=== PATIENT | male | born 1990 | race Two or more races ===

== ENCOUNTER 2021-10-29 08:54 | Outpatient (CLI) | payer OTHER ==
--- NOTE | 2021-10-30 11:17 | Nuclear Medicine Report ---
PROCEDURE: Thyroid Imaging and Uptake INDICATIONS: THYROTOXICOSIS RADIOPHARMACEUTICAL: 0.37 Ci I-123 sodium iodide by mouth. TECHNIQUE: I-123 sodium iodide was administered orally. Anterior neck images were obtained, and iodine uptake b y the thyroid gland calculated using jewel sawyer's software. COMPARISON: None available. FINDINGS: Morphology: The thyroid gland has normal morphology and uniform activity. No cold' or hot' thyroi d nodules are identified. Uptake: 6 hour thyroid uptake is 75%; normal ranges are from 6-18%. 24 hour thyroid uptake is 76%; normal ranges are from 10-30%. IMPRESSION: Increased thyroid uptake at 6 hours and 12 hours consistent with history of thyrotoxicos is. Reviewed by: Campbell Bob on 10/30/2021 11:15 AM [facility] Approved by: Campbell Bob on 10/30/2021 11:15 AM [facility] Station ID: [id number]
== END 2021-10-29 08:55 | disposition home or self-care (01) ==
LOC: DI 08:54
DX: E05.90 Thyrotoxicosis, unspecified without thyrotoxic crisis or storm (principal)
CPT/HCPCS: 78014; A9509

== ENCOUNTER 2022-10-14 13:40 | Outpatient (CLI) | payer OTHER ==
--- NOTE | 2022-10-14 14:33 | SLEEP CARE CONSULTATION ---
Information from patient questionnaire entered by Celi Arriaza. I have reviewed and concur with the information entered by Celi Arriaza. This document represents the service I personally performed and the decisions made by me, Jayla Jordan ARNP. History of Present Illness Service Date and Time: 10/14/2022 1340 Reason for Visit: New patient Chief Complaint: reports: Insomnia, Unrefreshed sleep, Excessive daytime sleepiness, Observed pauses in breathing, Fatigue, Frequent awakenings at night Date of Onset: 1.5YRS Usual bedtime: 10PM Time it takes to fall asleep: 30-60MIN Snores at night: No Observed to quit breathing while asleep: Yes Sleeps alone due to snoring: No Number of times waking at night: 3 Reasons for waking at night: reports: Choking, Gasping for air, Other (UNKNOWN REASONS). denies: Snoring Toss, Turn, or Twitch while sleeping: Yes Recalls having dreams: Yes Usually gets out of bed at: 6AM Feels refreshed in the morning: No Morning headache: Yes (every AM; FEELING [place] EVERY MORNING GOES AWAY IN 2-3 HRS) Sleepy or fatigued during the day: Yes Ever fallen asleep while driving: No Takes day naps: No Dreams during day naps: No Prior sleep studies: No [facility] Type of Sleep Study: Home sleep study Additional HPI information: I had the pleasure of seeing ROOSEVELT CARROLL today regarding the possibility of him having a sleep disorder. His current complaints are excessive daytime sleepiness, fatigue, frequent night awakenings, insomnia, observed pauses in breathing and unrefreshed sleep. He can fall asleep in 30-60 minutes but will wake up frequently through the night. He states he has difficulty staying asleep and sometimes when he wakes up he can not go back to sleep quickly. He wakes up feeling "hung over", dizzy, with headache and tired. He states he had a sleep study earlier this year and was told he had moderate sleep apnea but was not started on therapy. - Parasomnia Symptoms Ever been unable to move upon waking from sleep: Yes (1-2 times a month) Walks in sleep: No Talks in sleep: Yes (laughs too) Ever acted out dreams in sleep: No Ever felt weak in the knees when startled or emotional: Yes (has not fallen to ground) Bothered by creepy, crawly, restless sensations in legs: No Problems with memory or concentration: Yes (both) Subjective Initial [place] Sleepiness Scale score: 10 (09/06/22) Past Medical History Past Medical History: reports: Anxiety, Depression, Attention deficit, Other (Hyperthyroid/[place]) Social History The patient's occupation is a AM. Patient is Single and lives in . Have you smoked in the past 12 months: No Cigarettes per day (20/pack): 20 Years of smokin Quit date: 2016 Smoking Pack Years: 1.0 Alcohol use: Yes Alcohol amount and frequency: DRINKS 1 X WEEKLY Caffeine use: Yes Caffeine amount and frequency: 1 EVERY MORNING Family History Family history of sleep disordered breathing: Yes Family Hx Sleep Apnea: Father: Snoring, Grandparent: Snoring Allergies and Home Medications Known drug allergies: No Drug allergies reviewed: Yes (NKDA) Home medication list reviewed: Yes Allergy and home medication list: Medications: Methimazole Duloxetine Atomoxetine Review of Systems Weight gain over past 5 years: 30 Weight loss over past 5 years: 30 Cardiovascular: denies: high blood pressure Respiratory: denies: shortness of breath Gastrointestinal: denies: heartburn Urinary: reports: frequency Neurological: reports: headaches Psychiatric: reports: Attention Deficit Hyperactivity, anxiety, depression Endocrine: reports: thyroid disease Musculoskeletal: reports: back pain Physical Exam Vital signs obtained and entered by: CELI Hart MA Blood Pressure: 112/70 (LEFT ARM) Cuff size: regular Heart Rate: 76 O2 Saturation: 98 Height: 5 ft 7 in Weight: 189 lb 9.6 oz Body Mass Index: 29.7 BMI Classification: Overweight Neck circumference: 16.5 Nostrils: patent to airflow Mouth and throat: narrow oropharynx Soft palate: long Hard palate: arched Uvula: edematous Uvula visualization: 50% Mallampati Class II Tongue: normal in size Tonsils: 1+ Neck: normal w/o lymphadenopathy or thyromegaly Heart: regular rate and rhythm Lungs: clear bilaterally Impression and Plan 1. Suspected Obstructive Sleep Apnea-Hypopnea Syndrome, as previously diagnosed and as suggested by a history of observed cessation of breath while asleep, gasping or choking in sleep, morning headache, frequent awakening during the night, unrefreshed sleep, cognitive impairment, and excessive daytime sleepiness. Narrow oropharynx and obesity are common predisposing factors for obstructive sleep apnea-hypopnea syndrome. I recommend proceeding to polysomnography to confirm the diagnosis and to assess severity. If the patient has significant sleep disordered breathing, a manual CPAP titration study will also be performed to find the optimal treatment pressure. I informed the patient of what the sleep studies involve and after some discussion, obtained agreement to proceed. The pathophysiology of obstructive sleep apnea-hypopnea syndrome was discussed with the patient and health risks of cardiovascular and cerebrovascular disease if not treated. Risks of drowsy driving discussed in detail and patient advised to avoid long distance driving and to hand assembler for puller over at the first sign of drowsiness. Patient agreed to plan. * Schedule polysomnography * Avoid long distance driving or driving when feeling sleepy. * Avoid alcohol, sedative and muscle relaxant around bedtime. * Attempt to lose weight. * Review instructions provided by trained office staff on how to prepare for the sleep study. * Return for follow-up after sleep study completed. Counseling Topics: Weight loss health impact Visit Type: In Office Time Spent with Patient (minutes): 31 Provider Statement: I spent 100% of the Face to Face Visit with the patient with greater than 50% spent counseling the patient and coordination of care.
[2022-10-14 14:34] VITALS: BP 112/70
== END 2022-10-14 13:41 | disposition home or self-care (01) ==
LOC: SC 13:40
PROVIDERS: ATTEND Nurse Practitioner Family
DX: G47.33 Obstructive sleep apnea (adult) (pediatric) (principal); E66.3 Overweight; Z68.29 Body mass index [BMI] 29.0-29.9, adult; Z87.891 Personal history of nicotine dependence
CPT/HCPCS: 99203; 99212